=== PATIENT | female | born 1950 | race Caucasian/White ===

== ENCOUNTER 2018-05-25 13:30 | Emergency (ER) | payer BC, SELFPAY ==
[2018-05-25] VITALS (24 sets, daily range): BP systolic 112–122; BP diastolic 71–75; PULSE 81–93; RESP 16; TEMP 37; O2SAT 88–98
--- NOTE | 2018-05-25 15:26 | DI.RAD_ITS ---
SYMPTOMS/DIAGNOSIS: TRAUMA LEFT SHOULDER: There is a fracture of the mid clavicle with overriding of the fracture fragments. No proximal humeral fracture or glenohumeral joint dislocation is seen. The AC joint appears intact. IMPRESSION: Clavicle fracture. LEFT CLAVICLE: There is a fracture of the mid shaft of the clavicle. The distal portion is displaced inferior to the proximal portion. There is a small comminuted intervening fracture. The AC joint and glenohumeral joint appear intact. IMPRESSION: Mid clavicle fracture. PA AND LATERAL CHEST AND LEFT RIBS: Comparison is made with chest x-ray dated . There is a fracture of the mid left clavicle. There are fractures of the left third through sixth ribs. No pneumothorax is seen. An azygous lobe, a normal variant is noted. There is mild scarring in the right upper lobe. Right paratracheal calcified lymph nodes are again noted, consistent with old healed granulomatous disease. IMPRESSION: Left third through sixth rib fractures. No pneumothorax. Left clavicle fracture.
--- NOTE | 2018-05-25 16:12 | DI.CT_ITS ---
SYMPTOMS/DIAGNOSIS: TRAUMA NONCONTRAST HEAD CT: No intracranial hemorrhage or skull fracture is seen. The ventricles are normal in size. The sinuses appear clear. The orbits appear intact. IMPRESSION: Negative head CT. CT OF THE CERVICAL SPINE: There is no evidence of a fracture or subluxation. There are degenerative disc changes at multiple levels and mild facet joint degenerative changes. IMPRESSION: Degenerative changes. No acute abnormality. CT OF THE CHEST, ABDOMEN AND PELVIS: There are fractures of the left posterior 1st through 8th ribs, as well as additional fractures laterally in the left 4th through 6th ribs. There is no evidence of pneumothorax, infiltrate or effusion. An azygos lobe, normal variant, is noted. Calcified right paratracheal and left hilar lymph nodes related to old granulomatous disease are noted. There is a comminuted left clavicle fracture. The thoracic spine appears intact. There are bilateral L5 pars defects, which appear old. There is slight spondylolisthesis at L5-S1 as well as degenerative disc changes. No acute fractures are identified. There is no evidence of free air, free fluid or bowel dilatation. The liver, gallbladder, pancreas, kidneys and adrenals are unremarkable. A hiatal hernia is noted. The uterus, ovaries and bladder are unremarkable. IMPRESSION: Fractures of the left clavicle and multiple left rib fractures. No evidence of pneumothorax or pulmonary contusion. L5 pars defects and mild L5-S1 spondylolisthesis appear old. CT OF THE THORACIC SPINE: Exam was reconstructed from the chest CT. There is no evidence of a fracture or paraspinal soft tissue swelling. There is no significant narrowing of the canal or neural foramen. IMPRESSION: Negative CT of the thoracic spine. CT OF THE LUMBAR SPINE: There are bilateral L5 pars defects, which appear old. There is mild L5-S1 spondylolisthesis as well as degenerative disc changes at L5-S1. Degenerative disc changes are also seen at L2-3. The remaining discs are well maintained. No acute fractures identified. IMPRESSION: Old L5 pars defects and mild L5-S1 spondylolisthesis.
--- NOTE | 2018-05-25 16:17 | DI.VRAD_ITS ---
EXAM: XR Left Ribs, 2 Views EXAM DATE/TIME: 05/25/2018 3:28 PM CLINICAL HISTORY: 67 years old, female; Pain; Pleuordynia; Painful respiration; Patient HX: Sledding trauma TECHNIQUE: XR Left ribs 2 views. COMPARISON: CR XR CLAVICLE LT 05/25/2018 3:33 PM FINDINGS: Lungs: Azygous lobe in the right lung which is a normal variant. Mildly hyperaerated lungs consistent with deep inspiratory effort vs reactive airway disease vs mild COPD . Heart/Mediastinum: Calcified bilateral hilar nodes and/or mediastinal nodes and/or lung granulomas consistent with old granulomatous disease. Bones/joints: Acute displaced left midshaft clavicular fracture. Displaced left posterior fifth and sixth rib fractures which may be acute. Probable multiple left lateral rib fractures which may be chronic healed fractures versus acute plastic fractures. Soft tissues: Normal. IMPRESSION: 1. Acute displaced left midshaft clavicular fracture. 2. Displaced left posterior fifth and sixth rib fractures which may be acute. 3. Probable multiple left lateral rib fractures which may be chronic healed fractures versus acute plastic fractures. EXAM: XR Chest, 2 Views EXAM DATE/TIME: 05/25/2018 3:28 PM CLINICAL HISTORY: 67 years old, female; Pain; Pleuordynia; Painful respiration; Patient HX: Sledding trauma TECHNIQUE: XR of the chest, 2 views. COMPARISON: CR XR CLAVICLE LT 05/25/2018 3:33 PM FINDINGS: Lungs: Unremarkable. No consolidation. Pleural space: Unremarkable. No pleural effusion. No pneumothorax. Heart/Mediastinum: Unremarkable. No cardiomegaly. Bones/joints: Acute comminuted displaced overriding left midshaft clavicular fracture best identified on images 103 and 104. IMPRESSION: Acute comminuted displaced overriding left midshaft clavicular fracture best identified on images 103 and 104. Dictated and Authenticated by: Nash Dahl MD. Ordering:PAGE Bañuelos MD
--- NOTE | 2018-05-25 16:18 | DI.VRAD_ITS ---
EXAM: XR Left Clavicle Complete, 2 or More Views EXAM DATE/TIME: 05/25/2018 3:28 PM CLINICAL HISTORY: 67 years old, female; Pain; Shoulder; Left; Patient HX: Sledding trauma TECHNIQUE: XR Left clavicle complete 2 or more views. COMPARISON: CR CHEST 2 VIEWS PA,LAT 09/14/2012 6:47 AM FINDINGS: Bones/joints: Acute comminuted displaced overriding left mid shaft clavicular fracture. Soft tissues: Normal. IMPRESSION: Acute comminuted displaced overriding left mid shaft clavicular fracture. Dictated and Authenticated by: Nash Dahl MD. Ordering:PGAE Bañuelos MD
--- NOTE | 2018-05-25 16:19 | DI.VRAD_ITS ---
EXAM: XR Left Shoulder Complete, 2 or More Views EXAM DATE/TIME: 05/25/2018 3:28 PM CLINICAL HISTORY: 67 years old, female; Pain; Shoulder; Left; Patient HX: Sledding trauma TECHNIQUE: XR Left shoulder complete 2 or more views. COMPARISON: No relevant prior studies available. FINDINGS: Bones/joints: Comminuted displaced angulated left clavicular fracture. Multiple left rib fractures of indeterminate age. Soft tissues: Normal. IMPRESSION: 1. Comminuted displaced angulated left clavicular fracture. 2. Multiple left rib fractures of indeterminate age. 3. Normal left shoulder. Dictated and Authenticated by: Nash Dahl MD. Ordering:PAGE Bañuelos MD
[2018-05-25 16:49] LABS: Abs Immature Grans 0.06 k/cumm (0.0-0.09); Absolute Lymphocyte Count 1.25 k/cumm (1.2-3.4); Basophils % 0.1; Eosinophils % 0.1; HGB 13.7 g/dL (12.0-15.5); Immature Grans % 0.3; Lymphocytes % 5.8; Mean Corp. HGB Concentration 35.1 g/dL (32.0-36.0); Mean Corpuscular Hemoglobin 31.4 pg (27.0-33.0); Mean Corpuscular Volume 89.2 fL (80-95); Mean Platelet Volume 9.5 fL (8.0-11.0); Monocytes % 3.7; Platelet Count 350 x1000/uL (130-400); RBC 4.37 m/cumm (4.00-5.20); RBC Distribution Width 12.3 % (11.7-14.6); White Blood Cell Count 21.63 k/cumm (4.4-10.8)
[2018-05-25 16:52] LABS: Absolute Basophil Count 0.02 k/cumm (0.0-0.2); Absolute Eosinophil Count 0.02 k/cumm (0.0-0.7); Absolute Neutrophil Count 19.47 k/cumm (1.2-6.7)
[2018-05-25 17:27] LABS: ALT 50 U/L (12-78); AST 35 U/L (15-37); Alkaline Phosphatase 139 U/L (46-116); Anion Gap 8.7 mmol/L (3-11); BUN 16 mg/dL (7-18); Bilirubin, Total 0.3 mg/dL (0.2-1.0); CO2 28.3 mmol/L (21.0-32.0); CREATININE 0.84 mg/dL (0.55-1.02); Calcium 9.5 mg/dL (8.5-10.1); Chloride 98 mmol/L (98-107); Glucose 135 mg/dL (70-100); Potassium 3.4 mmol/L (3.5-5.1); Sodium 135 mmol/L (136-145); Total Protein 7.6 g/dL (6.4-8.2)
[2018-05-25] MEDS: Omnipaque 350 MG/ML 100 ML BTL IJ (17:34)
--- NOTE | 2018-05-25 17:38 | DI.VRAD_ITS ---
EXAM: CT Head Without Contrast EXAM DATE/TIME: 05/25/2018 4:14 PM CLINICAL HISTORY: 67 years old, female; Abnormal findings; Patient HX: Sledding accident; Numerous fractures seen on xrays TECHNIQUE: Axial computed tomography images of the head/brain without contrast. Coronal and sagittal reformatted images were created and reviewed. COMPARISON: No relevant prior studies available. FINDINGS: Brain: Normal. No hemorrhage. No significant white matter disease. No edema. Ventricles: Normal. No ventriculomegaly. Bones/joints: Normal. No acute fracture. Sinuses: Normal as visualized. No acute sinusitis. Mastoid air cells: Normal as visualized. No mastoid effusion. Soft tissues: Normal. Vasculature: Mild calcified intracranial atherosclerotic vessel disease. IMPRESSION: No acute findings. EXAM: CT Cervical Spine Without Contrast EXAM DATE/TIME: 05/25/2018 4:14 PM CLINICAL HISTORY: 67 years old, female; Abnormal findings; Patient HX: Sledding accident; Numerous fractures seen on xrays TECHNIQUE: Axial computed tomography images of the cervical spine without intravenous contrast. Coronal and sagittal reformatted images were created and reviewed. COMPARISON: No relevant prior studies available. FINDINGS: Vertebrae: Left posterior first and second rib fractures. Moderate to severe multilevel degenerative changes including degenerative disc disease, spondylosis and facet degenerative changes. Discs/Spinal canal/Neural foramina: No spinal stenosis. No neural foraminal narrowing. Soft tissues: Unremarkable. Dental: Examination is limited secondary to metallic artifact from dental fillings and/or dental hardware. Lungs: Lung apices are normal. IMPRESSION: Left posterior first and second rib fractures. No acute cervical spine findings. Dictated and Authenticated by: Nash Dahl MD. Ordering:PAGE Bañuelos MD
--- NOTE | 2018-05-25 17:44 | DI.VRAD_ITS ---
EXAM: CT Lumbar Spine Without Contrast EXAM DATE/TIME: 05/25/2018 4:14 PM CLINICAL HISTORY: 67 years old, female; Injury or trauma; Injury history: Sledding accident; Patient HX: Sledding accident; Numerous fractures seen on xrays TECHNIQUE: Axial computed tomography images of the lumbar spine without intravenous contrast. COMPARISON: No relevant prior studies available. FINDINGS: Vertebrae: Bilateral L5 pars defects with 9 mm anterolisthesis of L5 over S1 with degenerative disc disease and loss of disc height. Chronic degenerative endplate changes at L2-L3 level. Vertebral body heights are within normal limits. No evidence of compression fracture. No evidence of acute fracture. Discs/Spinal canal/Neural foramina: No disc protrusion or extrusion. Soft tissues: Unremarkable. IMPRESSION: 1. Bilateral L5 pars defects with 9 mm anterolisthesis of L5 over S1 with degenerative disc disease and loss of disc height. These findings appear chronic. 2. Vertebral body heights are within normal limits. No evidence of compression fracture. No evidence of acute fracture. Dictated and Authenticated by: Jessica Dunn MD. Ordering:PAGE Bañuelos MD
[2018-05-25] MEDS: LORazepam 2 MG/ML VIAL 0.5 MG IVP (18:03)
--- NOTE | 2018-05-25 18:41 | W.ED.GENAD ---
Discharge Plan Disposition Patient Disposition: [facility] Condition: Serious Discharge Details Chief Complaint: Orthopedic Clinical Impression: Multiple fractures of ribs of left side, Clavicle fracture, shaft Primary Care Provider: Maureen Bello ED Provider: Sarmad Roberts Home Meds and New Rx's Prescriptions: No Action amitriptyline 10 MG tablet 10 mg PO PRN PRNRF: 0 levothyroxine [Synthroid] 125 MCG tablet 125 mcg PO DAILY RF: 0 naproxen sodium [Aleve] 220 MG tablet 440 mg PO RF: 0 multivitamin 1 EACH capsule 1 ea PO DAILY RF: 0 cholecalciferol (vitamin D3) 1,000 UNITS tablet 6,000 units PO DAILY RF: 0 Fish Oil 500 MG capsule 1,400 mg PO DAILY RF: 0 codeine-guaifenesin [Cheratussin AC] 5 ML liquid 5 ml PO QID PRN PRN (Reason: Cough) Qty: 125 RF: 0 Discharge Data Discharge Date/Time-TO BE ENTERED AT DEPARTURE: 05/25/18 20:56 Medical Decision Making Patient presenting to the emergency department with chief complaint of left shoulder/clavicle pain. She states that she was sledding with her grandkids when she slid into a tree sideways hitting it with her left shoulder. She states significant discomfort and deformity to her clavicle. Patient denies any head injury, loss of consciousness, neck pain, neurological deficits. She does state some pain in her back with deep inspiration and some rib pain but states most pain is concentrated on her left clavicle. Physical exam reveals a obvious deformity to the midshaft of left clavicle along with some generalized rib and back pain with clear lung sounds throughout lungs, patient is stable with stable vital signs no acute signs of distress. Due to very high since the emergency department patient was briefly examined within a wheelchair in the hallway and sent for plain film imaging of the clavicle, left shoulder, and rib series. Patient is otherwise stable at this time. Prior to arriving patient took Tylenol and Motrin which she states is controlling her pain but is having some anxiety which is normal for her so patient ordered 0.5 mg p.o. Ativan Review of plain film imaging shows a obvious clavicular fracture and concern for multiple rib fractures. Due to this and mechanism of injury patient was recent back to CT scan for head neck chest abdomen pelvis imaging for trauma study. Patient remains in stable condition with no new or worsening symptoms. Patient given some morphine for pain and told staff consultant that she did not need the Ativan due to not getting it and she just take the pain medication. Images along with radiologist interpretation were reviewed and patient has a comminuted displaced left midshaft clavicular fracture along with fractures of the first second third fifth 6 7 and 8 posterior segments of the ribs and lateral rib fractures to the fourth and sixth ribs on the left side. Due to this surgeon telecommunications field technician was contacted whom recommended patient go to a trauma center due to potential for decompensation. Spoke with with [facility] trauma services who agreed to accept patient in transfer. Patient was agreeable to this plan of Care. HPI General Mode of arrival: wheelchair. Date/Time Provider Initiated Documentation: 05/25/18 14:09. Limitations to Documentation: no limitations. Information obtained by: patient, family and RN notes reviewed. History of Present Illness 67 year old F presents to the emergency department with the chief complaint of Sledding injury, described as severe, with intensity rated at 10. and is localized to the back, left and upper extremity. 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 No relieving factors improve symptom(s), Movement worsens symptoms . Patient notes no other symptoms.. Patient did receive the following treatments prior to arrival, NSAID (And acetaminophen) Related Data Home Medications Medication Instructions Recorded Confirmed amitriptyline 10 mg PO PRN PRN 09/14/12 05/25/18 cholecalciferol (vitamin D3) 6,000 units PO DAILY 09/14/12 05/25/18 levothyroxine [Synthroid] 125 mcg PO DAILY 09/14/12 05/25/18 multivitamin 1 ea PO DAILY 09/14/12 05/25/18 naproxen sodium [Aleve] 440 mg PO 09/14/12 09/14/14 omega-3 fatty acids [Fish Oil] 1,400 mg PO DAILY 09/14/14 05/25/18 codeine-guaifenesin [Robitussin 5 ml PO QID PRN PRN #125 ml 07/09/16 05/25/18 A-C Syrup] Previous Rx's Medication Instructions Recorded codeine-guaifenesin [Robitussin 5 ml PO QID PRN PRN #125 ml 07/09/16 A-C Syrup] Allergies Allergy/AdvReac Type Severity Reaction Status Date / Time latex Allergy Intermediate Wheezing Unverified 05/25/18 13:41 General Stated Complaint: Orthopedic GINNY: 4 Review of Systems Constitutional Denies chills, Denies fever(s), Denies headache(s), Denies lethargy and Denies weakness Eyes Denies blurry vision and Denies change in vision ENT Denies headache(s), Denies epistaxis, Denies mouth pain, Denies nasal trauma and Denies neck pain Cardiovascular Denies chest pain Respiratory Denies cough, Denies hemoptysis, Reports pain on inspiration, Denies stridor and Denies wheezing Gastrointestinal Denies abdominal pain, Denies diarrhea, Denies nausea and Denies vomiting Musculoskeletal Reports as per HPI, Reports back pain, Reports arthralgias, Reports limited range of motion and Denies neck pain Neurologic Denies headache(s) and Denies weakness Allergic/Immunologic Denies wheezing [facility] Medical History Hypothyroidism (Chronic) Osteoporosis (Chronic) Social History Smoking/Tobacco Use Status: Former Tobacco Use Exam Const General: cooperative, healthy appearing, no acute distress, anxious and not ill appearing Nutritional Appearance: average body habitus Orientation: alert, awake and oriented x3 Limitations: mental status not altered [facility] Head: normal to inspection, no palpable skull fracture, normocephalic, no Dangelo's sign, no contusions, no hematomas, no raccoon eyes and no scalp tenderness Ears: hearing grossly normal bilaterally and TM's normal bilaterally General nose exam: external nose normal Mouth: oral mucosae normal and moist mucous membranes Teeth and gingiva: dentition normal Throat: posterior oropharynx normal Eyes General: appearance normal, both eyes and all related structures Neck Neck: normal visual inspection, full ROM, trachea midline and supple Chest Chest: tenderness rib (Significant tenderness to palpation of left ribs with discomfort to palpation of multiple ribs both anterior posterior left-sided chest wall. Right side is unremarkable) and sternoclavicular joint on the right (Along with deformity to the clavicle, midshaft) Resp Effort & Inspection: normal respiratory effort, able to speak in complete sentences and no respiratory distress Auscultation: clear to auscultation bilaterally and lung sounds not diminished Cardio Rate: regular rate Rhythm: regular rhythm GI Inspection: normal to inspection Palpation: soft and nontender Back/Spine/Pelvis Cervical Spine: normal cervical lordosis, cervical ROM normal, No cervical muscular tenderness, No pain with cervical ROM and No step off deformity Thoracic/Lumbar Spine: paraspinal tenderness, thoracic spinal tenderness and No lumbar spinal tenderness Pelvis: no pain with anterior-posterior compression Skin General skin exam: no rashes or lesions noted Neuro General: alert, awake, oriented x3, moves all extremities and no focal motor deficits Sensory Exam: no sensory deficits noted Extrem Left upper extremity: shoulder/upper arm Details: tenderness Location: of the clavicle Laterality: mid-shaft and laterally and of the proximal humerus; not of the mid-shaft humerus, swelling Location: of the clavicle, abnormal ROM Details: held in an abnormal fashion Details: in internal rotation and deformity Location: of the clavicle Location: mid-shaft and laterally Course Vital Signs Temperature 37 C 05/25/18 13:38 Pulse 93 H 05/25/18 13:38 Respiratory Rate 16 05/25/18 13:38 Blood Pressure 116/75 05/25/18 13:38 Pulse Oximetry 96 05/25/18 13:38 Temperature 37 C 05/25/18 13:38 Temperature Source Skin 05/25/18 13:38 Pulse 81 05/25/18 16:36 Respiratory Rate 16 05/25/18 13:38 Respiratory Effort Non-Labored 05/25/18 13:38 Blood Pressure 122/71 05/25/18 16:36 Blood Pressure Mean 83 05/25/18 16:36 Blood Pressure Position Sitting 05/25/18 13:38 Pulse Oximetry 95 05/25/18 18:31 Oxygen Delivery Method Nasal Cannula 05/25/18 18:31 Oxygen Flow Rate 2 05/25/18 18:31 Pain Level 3 05/25/18 17:46 Lab/Test Results Lab/Test Results: Laboratory Tests Range/Units 05/25/18 05/25/18 16:30 16:30 WBC (4.4-10.8) k/cumm 21.63 H RBC (4.00-5.20) m/cumm 4.37 Hgb (12.0-15.5) g/dL 13.7 Hct (36.0-46.0) % 39.0 MCV (80-95) fL 89.2 MCH (27.0-33.0) pg 31.4 MCHC (32.0-36.0) g/dL 35.1 RDW (11.7-14.6) % 12.3 Plt Count (130-400) x1000/uL 350 MPV (8.0-11.0) fL 9.5 Immature Gran % 0.3 Neutrophils % 90.0 Lymphocytes % 5.8 Monocytes % 3.7 Eosinophils % 0.1 Basophils % 0.1 Absolute Neutrophils (1.2-6.7) k/cumm 19.47 H Absolute Lymphocytes (1.2-3.4) k/cumm 1.25 Absolute Monocytes (0.11-0.7) k/cumm 0.80 H Absolute Eosinophils (0.0-0.7) k/cumm 0.02 Absolute Basophils (0.0-0.2) k/cumm 0.02 Sodium (136-145) mmol/L 135 L Potassium (3.5-5.1) mmol/L 3.4 L Chloride (98-107) mmol/L 98 Carbon Dioxide (21.0-32.0) mmol/L 28.3 Anion Gap (3-11) mmol/L 8.7 BUN (7-18) mg/dL 16 Creatinine (0.55-1.02) mg/dL 0.84 Estimated GFR/1.73 m2 (mL/min/1.73m2) >= 60.00 Glucose (70-100) mg/dL 135 H Calcium (8.5-10.1) mg/dL 9.5 Total Bilirubin (0.2-1.0) mg/dL 0.3 AST (15-37) U/L 35 ALT (12-78) U/L 50 Alkaline Phosphatase (46-116) U/L 139 H Total Protein (6.4-8.2) g/dL 7.6 Albumin (3.4-5.0) g/dL 4.0
--- NOTE | 2018-05-25 18:48 | ED.GENADUL_ITS ---
Discharge Plan Disposition Patient Disposition: [facility] Condition: Serious Discharge Details Chief Complaint: Orthopedic Clinical Impression: Multiple fractures of ribs of left side, Clavicle fracture, shaft Primary Care Provider: Maureen Bello ED Provider: Sarmad Roberts Home Meds and New Rx's Prescriptions: No Action amitriptyline 10 MG tablet 10 mg PO PRN PRNRF: 0 levothyroxine [Synthroid] 125 MCG tablet 125 mcg PO DAILY RF: 0 naproxen sodium [Aleve] 220 MG tablet 440 mg PO RF: 0 multivitamin 1 EACH capsule 1 ea PO DAILY RF: 0 cholecalciferol (vitamin D3) 1,000 UNITS tablet 6,000 units PO DAILY RF: 0 Fish Oil 500 MG capsule 1,400 mg PO DAILY RF: 0 codeine-guaifenesin [Cheratussin AC] 5 ML liquid 5 ml PO QID PRN PRN (Reason: Cough) Qty: 125 RF: 0 Discharge Data Discharge Date/Time-TO BE ENTERED AT DEPARTURE: 05/25/18 20:56 Medical Decision Making Patient presenting to the emergency department with chief complaint of left shoulder/clavicle pain. She states that she was sledding with her grandkids when she slid into a tree sideways hitting it with her left shoulder. She states significant discomfort and deformity to her clavicle. Patient denies any head injury, loss of consciousness, neck pain, neurological deficits. She does state some pain in her back with deep inspiration and some rib pain but states most pain is concentrated on her left clavicle. Physical exam reveals a obvious deformity to the midshaft of left clavicle along with some generalized rib and back pain with clear lung sounds throughout lungs, patient is stable with stable vital signs no acute signs of distress. Due to very high since the emergency department patient was briefly examined within a wheelchair in the hallway and sent for plain film imaging of the clavicle, left shoulder, and rib series. Patient is otherwise stable at this time. Prior to arriving patient took Tyl enol and Motrin which she states is controlling her pain but is having some anxiety which is normal for her so patient ordered 0.5 mg p.o. Ativan Review of plain film imaging shows a obvious clavicular fracture and concern for multiple rib fractures. Due to this and mechanism of injury patient was recent back to CT scan for head neck chest abdomen pelvis imaging for trauma study. Patient remains in stable condition with no new or worsening symptoms. Patient given some morphine for pain and told senior staff psychologist that she did not need the Ativan due to not getting it and she just take the pain medication. Images along with radiologist interpretation were reviewed and patient has a comminuted displaced left midshaft clavicular fracture along with fractures of the first second third fifth 6 7 and 8 posterior segments of the ribs and lateral rib fractures to the fourth and sixth ribs on the left side. Due to this surgeon industrial controls technician was contacted whom recommended patient go to a trauma center due to potential for decompensation. Spoke with with [place] [facility] who agreed to accept patient in transfer. Patient was agreeable to this plan of Care. HPI General Mode of arrival: wheelchair . Date/Time Provider Initiated Documentation: 05/25/18 14:09 . Limitations to Documentation: no limitations . Information obtained by: patient, family and RN notes reviewed . History of Present Illness 67 year old F presents to the emergency department with the chief complaint of Sledding injury, described as severe, with intensity rated at 10. and is localized to the back, left and upper extremity. 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 No relieving factors improve symptom(s), Movement worsens symptoms . Patient notes no other symptoms.. Patient did receive the following treatments prior to arrival, NSAID (And acetaminophen) Related Data Home Medications Medication Instructions Recorded Confirmed amitriptyline 10 mg PO PRN PRN 09/14/12 05/25/18 cholecalciferol (vitamin D3) 6,000 units PO DAILY 09/14/12 05/25/18 levothyroxine [Synthroid] 125 mcg PO DAILY 09/14/12 05/25/18 multivitamin 1 ea PO DAILY 09/14/12 05/25/18 naproxen sodium [Aleve] 440 mg PO 09/14/12 09/14/14 omega-3 fatty acids [Fish Oil] 1,400 mg PO DAILY 09/14/14 05/25/18 codeine-guaifenesin [Robitussin 5 ml PO QID PRN PRN #125 ml 07/09/16 05/25/18 A-C Syrup] Previous Rx's Medication Instructions Recorded codeine-guaifenesin [Robitussin 5 ml PO QID PRN PRN #125 ml 07/09/16 A-C Syrup] Allergies Allergy/AdvReac Type Severity Reaction Status Date / Time latex Allergy Intermediate Wheezing Unverified 05/25/18 13:41 General Stated Complaint: Orthopedic GINNY: 4 Review of Systems Constitutional Denies chills, Denies fever(s), Denies headache(s), Denies lethargy and Denies weakness Eyes Denies blurry vision and Denies change in vision ENT Denies headache(s), Denies epistaxis, Denies mouth pain, Denies nasal trauma and Denies neck pain Cardiovascular Denies chest pain Respiratory Denies cough, Denies hemoptysis, Reports pain on inspiration, Denies stridor and Denies wheezing Gastrointestinal Denies abdominal pain, Denies diarrhea, Denies nausea and Denies vomiting Musculoskeletal Reports as per HPI, Reports back pain, Reports arthralgias, Reports limited range of motion and Denies neck pain Neurologic Denies headache(s) and Denies weakness Allergic/Immunologic Denies wheezing [facility] Medical History Hypothyroidism (Chronic) Osteoporosis (Chronic) Social History Smoking/Tobacco Use Status: Former Tobacco Use Exam Const General: cooperative, healthy appearing, no acute distress, anxious and not ill appearing Nutritional Appearance: average body habitus Orientation: alert, awake and oriented x3 Limitations: mental status not altered [facility] Head: normal to inspection, no palpable skull fracture, normocephalic, no Dangelo's sign, no contusions, no hematomas, no raccoon eyes and no scalp tenderness Ears: hearing grossly normal bilaterally and TM's normal bilaterally General nose exam: external nose normal Mouth: oral mucosae normal and moist mucous membranes Teeth and gingiva: dentition normal Throat: posterior oropharynx normal Eyes General: appearance normal, both eyes and all related structures Neck Neck: normal visual inspection, full ROM, trachea midline and supple Chest Chest: tenderness rib (Significant tenderness to palpation of left ribs with discomfort to palpation of multiple ribs both anterior posterior left-sided chest wall. Right side is unremarkable) and sternoclavicular joint on the right (Along with deformity to the clavicle, midshaft) Resp Effort & Inspection: normal respiratory effort, able to speak in complete sentences and no respiratory distress Auscultation: clear to auscultation bilaterally and lung sounds not diminished Cardio Rate: regular rate Rhythm: regular rhythm GI Inspection: normal to inspection Palpation: soft and nontender Back/Spine/Pelvis Cervical Spine: normal cervical lordosis, cervical ROM normal, No cervical muscular tenderness, No pain with cervical ROM and No step off deformity Thoracic/Lumbar Spine: paraspinal tenderness, thoracic spinal tenderness and No lumbar spinal tenderness Pelvis: no pain with anterior-posterior compression Skin General skin exam: no rashes or lesions noted Neuro General: alert, awake, oriented x3, moves all extremities and no focal motor deficits Sensory Exam: no sensory deficits noted Extrem Left upper extremity: shoulder/upper arm Details: tenderness Location: of the clavicle Laterality: mid-shaft and laterally and of the proximal humerus; not of the mid-shaft humerus, swelling Location: of the clavicle, abnormal ROM Details: held in an abnormal fashion Details: in internal rotation and deformity Location: of the clavicle Location: mid-shaft and laterally Course Vital Signs Temperature 37 C 05/25/18 13:38 Pulse 93 H 05/25/18 13:38 Respiratory Rate 16 05/25/18 13:38 Blood Pressure 116/75 05/25/18 13:38 Pulse Oximetry 96 05/25/18 13:38 Temperature 37 C 05/25/18 13:38 Temperature Source Skin 05/25/18 13:38 Pulse 81 05/25/18 16:36 Respiratory Rate 16 05/25/18 13:38 Respiratory Effort Non-Labored 05/25/18 13:38 Blood Pressure 122/71 05/25/18 16:36 Blood Pressure Mean 83 05/25/18 16:36 Blood Pressure Position Sitting 05/25/18 13:38 Pulse Oximetry 95 05/25/18 18:31 Oxygen Delivery Method Nasal Cannula 05/25/18 18:31 Oxygen Flow Rate 2 05/25/18 18:31 Pain Level 3 05/25/18 17:46 Lab/Test Results Lab/Test Results: Laboratory Tests Range/Units 05/25/18 05/25/18 16:30 16:30 WBC (4.4-10.8) k/cumm 21.63 H RBC (4.00-5.20) m/cumm 4.37 Hgb (12.0-15.5) g/dL 13.7 Hct (36.0-46.0) % 39.0 MCV (80-95) fL 89.2 MCH (27.0-33.0) pg 31.4 MCHC (32.0-36.0) g/dL 35.1 RDW (11.7-14.6) % 12.3 Plt Count (130-400) x1000/uL 350 MPV (8.0-11.0) fL 9.5 Immature Gran % 0.3 Neutrophils % 90.0 Lymphocytes % 5.8 Monocytes % 3.7 Eosinophils % 0.1 Basophils % 0.1 Absolute Neutrophils (1.2-6.7) k/cumm 19.47 H Absolute Lymphocytes (1.2-3.4) k/cumm 1.25 Absolute Monocytes (0.11-0.7) k/cumm 0.80 H Absolute Eosinophils (0.0-0.7) k/cumm 0.02 Absolute Basophils (0.0-0.2) k/cumm 0.02 Sodium (136-145) mmol/L 135 L Potassium (3.5-5.1) mmol/L 3.4 L Chloride (98-107) mmol/L 98 Carbon Dioxide (21.0-32.0) mmol/L 28.3 Anion Gap (3-11) mmol/L 8.7 BUN (7-18) mg/dL 16 Creatinine (0.55-1.02) mg/dL 0.84 Estimated GFR/1.73 m2 (mL/min/1.73m2) >= 60.00 Glucose (70-100) mg/dL 135 H Calcium (8.5-10.1) mg/dL 9.5 Total Bilirubin (0.2-1.0) mg/dL 0.3 AST (15-37) U/L 35 ALT (12-78) U/L 50 Alkaline Phosphatase (46-116) U/L 139 H Total Protein (6.4-8.2) g/dL 7.6 Albumin (3.4-5.0) g/dL 4.0
[2018-05-25] MEDS: MORPHine 10 MG/ML VIAL 2 MG IVP (19:51)
== END 2018-05-25 20:56 | disposition short-term general hospital (02) ==
PROVIDERS: Emergency Provider Nurse Practitioner Family; PCP Physician Assistant
DX: S22.42XA Multiple fractures of ribs, left side, initial encounter for closed fracture (principal); S42.022A Displaced fracture of shaft of left clavicle, initial encounter for closed fracture; W22.09XA Striking against other stationary object, initial encounter; Y93.23 Activity, snow (alpine) (downhill) skiing, snowboarding, sledding, tobogganing and snow tubing; F41.9 Anxiety disorder, unspecified
CPT/HCPCS: 36415; 74177; 80053; 96374; 96375; 99285; 70450; 71046; 71100; 71260; 72125; 73000; 73030; 85025; 99284; J2060; J2270; J3490

== ENCOUNTER 2024-01-12 14:06 | Emergency (ER) | payer MEDICARE, SELFPAY ==
[2024-01-12 14:13] VITALS: BP 125/72; PULSE 99; RESP 20; TEMP 37; O2SAT 96
--- NOTE | 2024-01-12 14:15 | DI.RAD_ITS ---
Exam(s) XR FOOT LT COMPLETE XR ANKLE LT COMPLETE EXAM: XR ANKLE LT COMPLETE and XR foot LT complete CLINICAL HISTORY: Fall/injury TECHNIQUE: 2D digital imaging was performed of the left foot and ankle. Six images were obtained. AP, lateral and oblique views were obtained. COMPARISON: No priors for comparison. FINDINGS: BONES: There is an acute displaced fracture through the base of the 5th metatarsal bone. No bony ayana tructive lesion is seen. There is a small plantar calcaneal spur. There is an enthesophyte at the po sterior calcaneus. JOINTS:The ankle mortise is normally aligned. SOFT TISSUE: Normal. IMPRESSION: There is an acute displaced comminuted fracture involving the base of the 5th metatarsal bone. DATA REPOSITORY: RADIATION DOSE DELIVERED:
--- NOTE | 2024-01-12 14:15 | DI.RAD_ITS ---
Exam(s) XR TIB/FIB RT EXAM: XR TIB/FIB RT CLINICAL HISTORY: Fall/injury. TECHNIQUE: 2D digital imaging was performed of the right tibia and fibula. Three images were obtaine d. AP and lateral views were obtained. COMPARISON: No exams were available for comparison FINDINGS: BONES: There is an acute nondisplaced fracture through the proximal metaphysis of the right fibula. No bony destructive lesion is seen. Visualized portion of knee and ankle joints are unremarkable. SOFT TISSUE: Normal. IMPRESSION: Acute nondisplaced proximal right fibular fracture. DATA REPOSITORY: RADIATION DOSE DELIVERED:
--- NOTE | 2024-01-12 14:29 | ED.GENADUL_ITS ---
Discharge Plan Disposition Patient Disposition: Home Condition: Stable Discharge Details Clinical Impression: Closed fracture of fifth metatarsal bone of left foot, Closed right fibular fracture Primary Care Provider: Maureen Bello ED Provider: Lou Reynaga Home Meds and New Rx's Prescriptions: No Action amitriptyline 10 MG tablet 10 mg PO PRN PRN levothyroxine [Synthroid] 125 MCG tablet 125 mcg PO DAILY naproxen sodium [Aleve] 220 MG tablet 440 mg PO Q8H PRN multivitamin 1 EACH capsule 1 ea PO DAILY cholecalciferol (vitamin D3) 1,000 UNITS tablet 6,000 units PO DAILY Fish Oil 500 MG capsule 1,400 mg PO DAILY Discharge Instructions Instructions: Foot Fracture (DC) Additional Instructions: You were seen in the emergency department today for evaluation of injury sustained during a fall last week, and were found to have a fracture in your left foot as well as your right lower leg. You should bear weight as tolerated in that right leg, and we placed you in a walking boot to protect the left foot. You need to follow-up with orthopedics in the next few days to discuss this visit and any symptoms that change, worsen, or persist, as sometimes these fractures, particularly the foot fracture, require surgery for poor healing. You can return to the emergency department if you have a sudden or severe change or worsening of your pain, cannot walk, or any other symptoms that cause you concern. Thank you for allowing us to be part of your care. Referrals: Clarke Leone MD [ [facility] STAFF PHYSICIAN] - 3 days Discharge Data Discharge Date/Time-TO BE ENTERED AT DEPARTURE: 01/12/24 16:26 HPI General Mode of arrival: ambulatory . Date/Time Provider Initiated Documentation: 01/12/24 14:09 . Limitations to Documentation: no limitations . Information obtained by: patient . HPI Narrative: MDM: In brief, this is a 73-year-old female patient presenting for evaluation of ongoing foot pain with redness, swelling that she sustained after a fall down a stair 1 week ago. My differential includes but is not limited to fracture, dislocation, ligamentous injury/sprain, contusion. I have no concern for neurovascular injury on my physical examination. Specifically, I am most concerned for a left foot fracture, though the patient does have tenderness concerning for a proximal fibula injury on the right side. Reassuringly there were no medical complaints prior to this fall to suggest syncope, orthostasis, vasovagal syndrome, ACS or arrhythmia, or stroke. The patient has been ambulatory, managing her pain conservatively with ice and Tylenol, and is otherwise in her normal state of health. The traumatic etiology decreases my concern for medical abnormalities, though the patient's redness and warmth over the area of the injury does also warrant consideration of infectious etiologies such as cellulitis, infected hematoma, no fluctuance to suggest abscess on my physical examination. We will obtain x-ray imaging of the affected left foot and ankle and the right tibia/fibula. The patient at this time is not desiring of any medications for management of pain, though I did provide her with an ice pack. ED Course: I independently interpreted the patient's x-ray imaging. She does have a fracture of the fifth metatarsal base of the left foot with avulsion/distraction, for which she will be placed in a walking boot. I did refer her to orthopedics given the high risk of nonunion and poor healing in these fractures. She was also found to have an isolated proximal fibula fracture of the right leg. Given that the patient has already been weightbearing for 1 week, and to avoid increased risk of falls given the use of 2 walking boots in this patient, I did elect to make this patient weightbearing as tolerated on this extremity. At this time, the patient has had a full medical evaluation and is safe for discharge to home. They are hemodynamically stable, ambulatory, and tolerating PO. They are understanding of the follow-up plan and return precautions. They left our facility without incident. Lou Reynaga MD HPI: This is a 73-year-old female patient with a past medical history significant for hypothyroidism and right sided sciatica who is presenting for evaluation of bilateral lower extremity injury after a fall. This fall occurred 1 week ago. She was walking down a stair and missed the last step, falling and twisting both of her ankles/feet. She reports that she was able to walk after this event, did have some pain that she has been managing with ice and Tylenol. Reports that she has not required any mobility aids to assist her with walking, and has otherwise been in her normal state of health. She did not experience chest pain, dizziness, or loss of consciousness prior to her fall. The patient reports that she was prompted to seek care today because the redness and swelling on her left foot appeared yesterday. She reports that the bruising has been persistent, and the pain in her right foot and ankle has almost entirely resolved. However, she is still having pain in the lateral aspect of her right lower leg. Exam: Gen: Awake and alert, in no apparent distress HEENT: Non-icteric sclera Neck: Supple Lungs: No apparent respiratory distress, normal respiratory effort. CV: Appears well perfused Abdomen: Non-distended MSK: Moves 4 extremities without apparent limitation in ROM. There is tenderness to palpation over the left midfoot and lateral ankle, with notable swelling, ecchymosis, and slight redness/warmth of the lateral aspect of the foot compared to the contralateral side. No sensory deficits, difficulty with motor distal to this injury, and DP pulses are symmetrical bilaterally. The right foot has some mild bruising on the toes but no limitation in range of motion, pain, or tenderness of the ankle or foot. She does have tenderness to palpation over the proximal fibula with no overlying skin changes. Skin: Visualized skin without rashes, cyanosis. Neuro: Normal Gait without assistance, no obvious focal deficits or facial asymmetry. Speaks in full, clear sentences. Psych: Appropriate for situation. Related Data Home Medications ?Medication ?Instructions ?Recorded ?Confirmed amitriptyline 10 mg tablet 10 mg PO PRN PRN 09/14/12 01/12/24 cholecalciferol (vitamin D3) 25 6,000 units PO DAILY 09/14/12 01/12/24 mcg (1,000 unit) tablet levothyroxine 125 mcg tablet 125 mcg PO DAILY 09/14/12 01/12/24 (Synthroid) multivitamin 1 ea PO DAILY 09/14/12 01/12/24 naproxen sodium 220 mg tablet 440 mg PO Q8H PRN 09/14/12 01/12/24 (Aleve) omega-3 fatty acids 500 mg capsule 1,400 mg PO DAILY 09/14/14 01/12/24 (Fish Oil) Allergies Allergy/AdvReac Type Severity Reaction Status Date / Time latex Allergy Intermediate Wheezing Unverified 01/12/24 14:18 duloxetine (From Cymbalta) AdvReac Intermediate Other (See Unverified 01/12/24 14:18 Comment) [id number] Reductase AdvReac Intermediate Other (See Unverified 01/12/24 14:18 Inhibitor Comment) General Stated Complaint: Orthopedic GINNY: 4 Course Vital Signs Vital signs: Vital Signs Temperature 37.0 C 01/12/24 14:13 Pulse 99 H 01/12/24 14:13 Respiratory Rate 20 01/12/24 14:13 Blood Pressure 125/72 01/12/24 14:13 Pulse Oximetry 96 01/12/24 14:13 Temperature 37.0 C 01/12/24 14:13 Pulse 99 H 01/12/24 14:13 Respiratory Rate 20 01/12/24 14:13 Blood Pressure 125/72 01/12/24 14:13 Blood Pressure Position Sitting 01/12/24 14:13 Pulse Oximetry 96 01/12/24 14:13 Oxygen Delivery Method Room Air 01/12/24 14:13 Oxygen Flow Rate 0 01/12/24 14:13 Pain Level 3 01/12/24 14:13 Medical Decision Making Quality:SDOH Health Related Social Needs: No Data to Display PFSH All Active Problems (Updated 01/12/24 @ 16:20 by Lou Reynaga MD) Closed right fibular fracture (Acute) Closed fracture of fifth metatarsal bone of left foot (Acute) Medical History (Updated 01/12/24 @ 16:20 by Lou Reynaga MD) Osteoporosis Hypothyroidism Social History Smoking/Tobacco Use Status: Former Tobacco Use Smoking risk assessment performed?: Yes Alcohol Intake: never Drug use: Never Do you feel safe at home: Yes Do you feel safe in your relationship?: Yes
--- NOTE | 2024-01-12 15:47 | DI.VRAD_ITS ---
PROCEDURE INFORMATION: Exam: XR Left Foot Exam date and time: 01/12/2024 2:48 PM Age: 73 years old Clinical indication: Injury or trauma; Fall; Sprain or strain; Foot; Left TECHNIQUE: Imaging protocol: Radiologic exam of the left foot. Views: 3 or more views. COMPARISON: CR XR ANKLE LT COMPLETE 01/12/2024 2:45 PM FINDINGS: Bones/joints: There is a comminuted fracture involving the base of the 5th metatarsal with avulsion and some distraction. No additional fracture seen. Soft tissues: Normal. IMPRESSION: Comminuted fracture with distraction involving the base of the 5th metatarsal. Dictated and Authenticated by: Cyndi Gupta MD. Ordering:MICHAEL Huber MD
[2024-01-12 15:48] VITALS: BP 132/70; PULSE 87; RESP 18; O2SAT 93
--- NOTE | 2024-01-12 15:50 | DI.VRAD_ITS ---
PROCEDURE INFORMATION: Exam: XR Left Ankle Exam date and time: 01/12/2024 2:45 PM Age: 73 years old Clinical indication: Injury or trauma; Fall; Sprain or strain; Ankle; Left TECHNIQUE: Imaging protocol: Radiologic exam of the left ankle. Views: 3 or more views. COMPARISON: No relevant prior studies available. FINDINGS: Bones/joints: There is an avulsion fracture at the base of the 5th metatarsal. See separate foot report. No additional fracture. Soft tissues: Normal. IMPRESSION: Base of the 5th metatarsal avulsion fracture. Dictated and Authenticated by: Cyndi Gupta MD. Ordering:MICHAEL Huber MD
--- NOTE | 2024-01-12 15:53 | DI.VRAD_ITS ---
PROCEDURE INFORMATION: Exam: XR Right Tibia and Fibula Exam date and time: 01/12/2024 2:54 PM Age: 73 years old Clinical indication: Injury or trauma; Fall; Sprain or strain; Lower leg; Right; Injury date: Last week TECHNIQUE: Imaging protocol: Radiologic exam of the right tibia and fibula. Views: 2 views. COMPARISON: No relevant prior studies available. FINDINGS: Bones/joints: There is a fracture of the proximal fibula. There is no significant displacement. Fracture may be incomplete. Soft tissues: Normal. IMPRESSION: Proximal fibular fracture. Dictated and Authenticated by: Cyndi Gupta MD. Ordering:MICHAEL Huber MD
== END 2024-01-12 16:26 | disposition home or self-care (01) ==
PROVIDERS: Emergency Provider Emergency Medicine; PCP Physician Assistant
DX: S92.352A Displaced fracture of fifth metatarsal bone, left foot, initial encounter for closed fracture (principal); S82.64XA Nondisplaced fracture of lateral malleolus of right fibula, initial encounter for closed fracture; W10.8XXA Fall (on) (from) other stairs and steps, initial encounter
CPT/HCPCS: 28470; 99284; 73590; 73610; 73630; 99283

== ENCOUNTER → 2024-01-23 09:00 | Outpatient (BNVA) | payer MEDICARE, SELFPAY | PROVIDERS: PCP Physician Assistant; Referring Provider Physician Assistant; Visit Provider Podiatrist | DX: S92.352A Displaced fracture of fifth metatarsal bone, left foot, initial encounter for closed fracture (principal); S82.401A Unspecified fracture of shaft of right fibula, initial encounter for closed fracture; R60.0 Localized edema; W10.8XXA Fall (on) (from) other stairs and steps, initial encounter; Y93.01 Activity, walking, marching and hiking | CPT/HCPCS: 99214; 73610; 73630 ==

== ENCOUNTER 2024-01-23 10:27 | Outpatient (CLI) | payer MEDICARE, SELFPAY ==
--- NOTE | 2024-01-23 10:08 | DI.RAD_ITS ---
Exam(s) XR FOOT LT COMPLETE EXAM: XR FOOT LT COMPLETE CLINICAL HISTORY: Further displacement?, S92.352A. TECHNIQUE: 2D digital imaging was performed. Three views. COMPARISON: CR,XR XR FOOT LT COMPLETE from 01/12/2024 FINDINGS: Stable alignment of fracture at the base of the 5th metatarsal. No new abnormalities. DATA REPOSITORY: RADIATION DOSE DELIVERED:
--- NOTE | 2024-01-23 10:08 | DI.RAD_ITS ---
Exam(s) XR ANKLE RT COMPLETE EXAM: XR ANKLE RT COMPLETE CLINICAL HISTORY: AJ alignment, S82.401A. TECHNIQUE: 2D digital imaging was performed. Three views. COMPARISON: CR,XR XR ANKLE LT COMPLETE from 01/12/2024 CR XR FOOT LT COMPLETE from 01/23/2024 FINDINGS: BONES: No acute fracture is present. No bony destructive lesion is seen. Heel spurs. JOINTS: The ankle mortise is normally aligned. Mild tibiotalar joint space narrowing. Mild periart icular spurring. SOFT TISSUE: Normal. IMPRESSION: Mild degenerative changes at the tibiotalar joint. Heel spurs. DATA REPOSITORY: RADIATION DOSE DELIVERED:
== END 2024-01-23 10:47 ==
LOC: DI 10:27
PROVIDERS: PCP Physician Assistant; Visit Provider Podiatrist
DX: S92.352A Displaced fracture of fifth metatarsal bone, left foot, initial encounter for closed fracture (principal); S82.401A Unspecified fracture of shaft of right fibula, initial encounter for closed fracture; M77.31 Calcaneal spur, right foot; M19.071 Primary osteoarthritis, right ankle and foot
CPT/HCPCS: 73610; 73630

== ENCOUNTER 2024-02-13 01:31 | Outpatient (CLI) | payer MEDICARE, SELFPAY ==
--- NOTE | 2024-02-13 06:45 | DI.RAD_ITS ---
Exam(s) XR FOOT LT COMPLETE EXAM: XR FOOT LT COMPLETE CLINICAL HISTORY: Healing? [id number] FX 5TH METATARSAL BONE LEFT FOOT. TECHNIQUE: 2D digital imaging was performed. Three views. COMPARISON: CR XR FOOT LT COMPLETE from 01/23/2024 FINDINGS: BONES: Stable alignment of comminuted fracture at the base of the 5th metatarsal. No bony destructiv e lesion is seen. Small heel spurs again noted. JOINTS: No dislocation present. Minimal degenerative changes. SOFT TISSUE: Normal. IMPRESSION: Stable fracture alignment. DATA REPOSITORY: RADIATION DOSE DELIVERED:
== END 2024-02-13 01:51 ==
PROVIDERS: PCP Physician Assistant; Visit Provider Podiatrist
DX: S92.352D Displaced fracture of fifth metatarsal bone, left foot, subsequent encounter for fracture with routine healing (principal); X58.XXXD Exposure to other specified factors, subsequent encounter
CPT/HCPCS: 73630